=== PATIENT | male | born 1995 | race Caucasian/White ===

== ENCOUNTER 2024-07-08 17:38 | Emergency (ER) | payer BC ==
[~2024-07-08] VITALS: Ht 175.3 cm; Wt 70.3 kg
[2024-07-08 18:15] VITALS: BP_SYST 128; PULSE 78; RESP 22; TEMP 98.1; O2SAT 96
[2024-07-08] MEDS: KETOROLAC TROMETHAMINE 30 MG VIAL IM ONE (20:49)
[2024-07-08] MEDS: METOCLOPRAMIDE HCL 10 MG/2 ML VIAL IM ONE (20:55)
[2024-07-08 21:10] LABS: INFLUENZA TYPE A Negative (NEGATIVE); INFLUENZA TYPE B NEGATIVE (NEGATIVE)
[2024-07-08] MEDS ORDERED: DICL50TA9 PO (22:20)
[2024-07-08] MEDS ORDERED: ONDA-8 TL (22:20)
[2024-07-08 22:25] VITALS: BP_SYST 125; PULSE 75; RESP 18; TEMP 98.1; O2SAT 96
== END 2024-07-08 22:25 | disposition home or self-care (01) ==
LOC: SED 17:38
DX: R11.0 Nausea (principal); R51.9 Headache, unspecified; Z20.822 Contact with and (suspected) exposure to COVID-19
CPT/HCPCS: 99285; 70450; 87426; 36415; 96372; 87804 ×2; J1885; J2765